=== PATIENT | female | born 1985 | race Caucasian/White ===

== ENCOUNTER → 2025-03-01 | Outpatient (CLI) | payer BC | END | disposition home or self-care (01) | LOC: RADMAMWWP 12:47 | PROVIDERS: ATTEND Obstetrics & Gynecology | DX: Z53.9 Procedure and treatment not carried out, unspecified reason (principal) ==

== ENCOUNTER → 2025-03-08 | Outpatient (CLI) | payer BC ==
--- NOTE | 2025-03-08 08:34 | MM ---
Reason for Exam: Additional evaluation requested from abnormal screening. Last screening mammogram was performed less than 1 month ago. Patient History: Menarche at age 11. First Full-Term at age 24. Premenopausal. Hormonal Contraceptives for 10 years from age 14 until age 24. Risk Values: Rachael 5 year model risk: 0.7%. NCI Lifetime model risk: 11.0%. Tissue Density: Right: There are scattered areas of fibroglandular density. Findings: Analyzed By CAD. No suspicious new lesion persists on additional views. Overall Assessment: Negative, BI-RAD 1 Management: Screening Mammogram of both breasts in 1 year. Return to routine follow-up. Results were given to the patient verbally at the time of exam. Patient should continue monthly self-breast exams. A clinical breast exam by your physician is recommended on an annual basis. This exam should not preclude additional follow-up of suspicious palpable abnormalities. Note on Rachael scores and lifetime risk: 1. A Rachael score greater than 3% is considered moderate risk. If this is the case, consider specialist referral to assess eligibility for a risk reducing agent. 2. If overall lifetime risk for the development of breast cancer is 20% or higher, the patient may qualify for future screening with alternating mammogram and breast MRI. [facility], , 03/08/2025 8:31 AM. Electronically signed and approved by: Louis Burris M.D.
== END | disposition home or self-care (01) ==
LOC: RADMAMWWP 08:12
PROVIDERS: ATTEND Obstetrics & Gynecology
DX: R92.8 Other abnormal and inconclusive findings on diagnostic imaging of breast (principal); R92.323 Mammographic fibroglandular density, bilateral breasts; Z92.0 Personal history of contraception
CPT/HCPCS: 77061; 77065